=== PATIENT | male | born 1960 ===

== ENCOUNTER 2017-08-31 13:25 | Emergency (ER) | payer BC ==
[2017-08-31] MEDS ORDERED: Naproxen 550 mg Tab PO STA (13:40)
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
[2017-08-31 16:02] VITALS: BP 131/75; PULSE 75; RESP 19; TEMP 98; O2SAT 100
== END 2017-08-31 16:04 | disposition home or self-care (01) ==
LOC: ED 13:25
DX: M54.5 Low back pain (principal); S43.402A Unspecified sprain of left shoulder joint, initial encounter; V49.49XA Driver injured in collision with other motor vehicles in traffic accident, initial encounter; Y92.410 Unspecified street and highway as the place of occurrence of the external cause